=== PATIENT | female | born 1960 ===

== ENCOUNTER → 2021-05-18 08:12 | Outpatient (BNVA) | payer OTHER, SELFPAY | PROVIDERS: PCP Family Medicine; Referring Provider Family Medicine; Visit Provider Specialist | DX: R29.898 Other symptoms and signs involving the musculoskeletal system (principal); R53.1 Weakness; F17.200 Nicotine dependence, unspecified, uncomplicated | CPT/HCPCS: 20550; 95885; 95909; J1040; J3490 ==

== ENCOUNTER → 2025-04-11 13:18 | Outpatient (BNVA) | payer MEDICARE, SELFPAY | PROVIDERS: PCP Family Medicine; Visit Provider Internal Medicine | DX: R06.09 Other forms of dyspnea (principal); E78.5 Hyperlipidemia, unspecified; I10 Essential (primary) hypertension; E11.9 Type 2 diabetes mellitus without complications; Z79.84 Long term (current) use of oral hypoglycemic drugs; F17.200 Nicotine dependence, unspecified, uncomplicated; R07.9 Chest pain, unspecified | CPT/HCPCS: 93005; 99204 ==